=== PATIENT | male | born 1945 | race Caucasian/White ===

== ENCOUNTER 2018-10-06 23:45 | Inpatient (IN) | payer MEDICARE, OTHER, MEDICAID ==
[2018-10-07] MEDS: LORAZEPAM 2 MG INJ IM (01:46)
[2018-10-07 15:46] LABS: ADD MAN DIFF? NO
[2018-10-07 16:07] LABS: BASOPHIL # 0.1 10^3/ul (0.0-0.1); BASOPHILS % 0.6 % (0.0-2.0); EOSINOPHILS # 0.2 10^3/ul (0.0-0.5); EOSINOPHILS % 2.1 % (0.0-7.0); HEMATOCRIT 40.1 % (42.0-52.0); HEMOGLOBIN 13.4 g/dl (14.0-18.0); LYMPHOCYTES # 2.2 10^3/ul (0.8-2.9); LYMPHOCYTES % 26.2 % (15.0-51.0); MEAN CORPUSCULAR HEMOGLOBIN 32.6 pg (29.0-33.0); MEAN CORPUSCULAR HGB CONC 33.4 g/dl (32.0-37.0); MEAN CORPUSCULAR VOLUME 97.6 fl (82.0-101.0); MEAN PLATELET VOLUME 10.7 fl (7.4-10.4); MONOCYTE # 0.5 10^3/ul (0.3-0.9); MONOCYTES % 6.3 % (0.0-11.0); NEUTROPHIL # 5.3 10^3/ul (1.6-7.5); NEUTROPHILS % 64.4 % (39.0-77.0); PLATELET COUNT 194 10^3/UL (140-415); RED BLOOD COUNT 4.11 10^6/ul (4.70-6.10); RED CELL DISTRIBUTION WIDTH 12.4 % (11.5-14.5)
[2018-10-07 16:07] LABS: WHITE BLOOD COUNT 8.2 10^3/ul (4.8-10.8)
[2018-10-07 16:25] LABS: ALANINE AMINOTRANSFERASE 23 IU/L (13-69); ALBUMIN 4.4 g/dl (3.3-4.9); ALBUMIN/GLOBULIN RATIO 1.33; ALKALINE PHOSPHATASE 69 IU/L (42-121); ANION GAP 10 (5-13); ASPARTATE AMINO TRANSFERASE 28 IU/L (15-46); BILIRUBIN,INDIRECT 0.3 mg/dl (0-1.1); BILIRUBIN,TOTAL 0.3 mg/dl (0.2-1.3); BLOOD UREA NITROGEN 16 mg/dl (7-20); CALCIUM 9.7 mg/dl (8.4-10.2); CARBON DIOXIDE 29 mmol/L (21-31); CHLORIDE 106 mmol/L (97-110); CREATININE 1.02 mg/dl (0.61-1.24); GLUCOSE 97 mg/dl (70-220); LIPASE 150 U/L (23-300); POTASSIUM 4.5 mmol/L (3.5-5.1); SODIUM 145 mmol/L (135-144); TOTAL PROTEIN 7.7 g/dl (6.1-8.1)
[2018-10-07 16:30] LABS: VALPROATE 12 ug/ml (50-100)
[2018-10-07 16:36] LABS: TROPONIN-I < 0.012 ng/ml (0.000-0.120)
[2018-10-07] MEDS ORDERED: ACETAMINOPHEN 325 MG TAB PO ×2 (17:00→18:00)
[2018-10-07] MEDS ORDERED: ONDANSETRON 4 MG INJ IV ×2 (17:00→18:00)
[2018-10-07 17:16] LABS: ADD UMIC NO; UR ASCORBIC ACID 40 mg/dL (NEGATIVE); UR BILIRUBIN (Dip) NEGATIVE (NEGATIVE); UR BLOOD (Dip) NEGATIVE (NEGATIVE); UR CLARITY SLIGHTLY CLOUDY (CLEAR); UR COLOR YELLOW (YELLOW); UR GLUCOSE (Dip) NEGATIVE (NEGATIVE); UR KETONES (Dip) NEGATIVE (NEGATIVE); UR LEUKOCYTE ESTERASE (Dip) NEGATIVE Leu/ul (NEGATIVE); UR NITRITE (Dip) NEGATIVE (NEGATIVE); UR RBC 1 /HPF (0-5); UR SPECIFIC GRAVITY (Dip) 1.017 (1.003-1.030); UR SQUAMOUS EPITHELIAL CELL FEW /HPF (FEW); UR TOTAL PROTEIN (Dip) NEGATIVE (NEGATIVE); UR UROBILINOGEN (Dip) 1+ mg/dL (NEGATIVE); UR WBC 2 /HPF (0-5)
[2018-10-07] MEDS: HALOPERIDOL 5 MG INJ IM ×2 (17:51→19:50)
[2018-10-07] MEDS: LORAZEPAM 2 MG INJ IV ×2 (17:56→23:08)
[2018-10-07] MEDS ORDERED: NACL 0.9% 3 ML SYG IV (18:00)
[2018-10-07] MEDS ORDERED: BISACODYL 10 MG SUPP PR (18:00)
[2018-10-07] MEDS ORDERED: ACETAMINOPHEN 650 MG SUPP PR (18:00)
[2018-10-07] MEDS: DIPHENHYDRAMINE 50 MG INJ IV ×2 (19:49→23:08)
[2018-10-07] MEDS: HALOPERIDOL 5 MG TAB PO (21:00)
[2018-10-07 23:01] LABS: FOLATE > 20.0 ng/ml (2.8-20.0)
[2018-10-07] MEDS: THIAMINE 100 MG TAB PO (23:16)
[2018-10-07] MEDS: FAMOTIDINE 20 MG TAB PO (23:16)
[2018-10-07] MEDS: OLANZAPINE 5 MG TAB PO (23:16)
[2018-10-07] MEDS: ARIPIPRAZOLE 2 MG TAB PO (23:24)
[2018-10-07] MEDS: METOPROLOL (XL) 25 MG TAB PO (23:29)
[2018-10-08] MEDS: DEXTROSE 5%-0.45% NACL 1,000 ML IV ×2 (01:30→13:57)
[2018-10-08] MEDS: ARIPIPRAZOLE 2 MG TAB PO ×2 (08:13→21:27)
[2018-10-08] MEDS: THIAMINE 100 MG TAB PO ×2 (08:16→21:26)
[2018-10-08] MEDS: FAMOTIDINE 20 MG TAB PO ×2 (08:16→21:27)
[2018-10-08] MEDS: METOPROLOL (XL) 25 MG TAB PO (08:17)
[2018-10-08 09:03] LABS: ADD MAN DIFF? NO
[2018-10-08 09:07] LABS: BASOPHIL # 0.1 10^3/ul (0.0-0.1); BASOPHILS % 0.7 % (0.0-2.0); EOSINOPHILS # 0.2 10^3/ul (0.0-0.5); EOSINOPHILS % 2.7 % (0.0-7.0); HEMATOCRIT 35.6 % (42.0-52.0); HEMOGLOBIN 12.1 g/dl (14.0-18.0); LYMPHOCYTES # 2.4 10^3/ul (0.8-2.9); LYMPHOCYTES % 34.5 % (15.0-51.0); MEAN CORPUSCULAR HEMOGLOBIN 32.4 pg (29.0-33.0); MEAN CORPUSCULAR VOLUME 95.2 fl (82.0-101.0); MEAN PLATELET VOLUME 10.8 fl (7.4-10.4); MONOCYTE # 0.5 10^3/ul (0.3-0.9); MONOCYTES % 7.2 % (0.0-11.0); NEUTROPHIL # 3.9 10^3/ul (1.6-7.5); NEUTROPHILS % 54.6 % (39.0-77.0); PLATELET COUNT 172 10^3/UL (140-415); RED BLOOD COUNT 3.74 10^6/ul (4.70-6.10); RED CELL DISTRIBUTION WIDTH 12.5 % (11.5-14.5)
[2018-10-08 09:07] LABS: WHITE BLOOD COUNT 7.1 10^3/ul (4.8-10.8)
[2018-10-08 09:28] LABS: ALANINE AMINOTRANSFERASE 32 IU/L (13-69); ALBUMIN 3.7 g/dl (3.3-4.9); ALBUMIN/GLOBULIN RATIO 1.32; ALKALINE PHOSPHATASE 57 IU/L (42-121); ANION GAP 6 (5-13); ASPARTATE AMINO TRANSFERASE 28 IU/L (15-46); BILIRUBIN,INDIRECT 0.4 mg/dl (0-1.1); BILIRUBIN,TOTAL 0.4 mg/dl (0.2-1.3); BLOOD UREA NITROGEN 16 mg/dl (7-20); CALCIUM 9.2 mg/dl (8.4-10.2); CARBON DIOXIDE 28 mmol/L (21-31); CHLORIDE 108 mmol/L (97-110); CREATININE 0.94 mg/dl (0.61-1.24); GLUCOSE 88 mg/dl (70-220); PHOSPHORUS 3.8 mg/dl (2.5-4.9); POTASSIUM 3.6 mmol/L (3.5-5.1); SODIUM 142 mmol/L (135-144); TOTAL PROTEIN 6.5 g/dl (6.1-8.1)
[2018-10-08 09:59] LABS: THYROID STIMULATING HORMONE 0.843 MIU/L (0.465-4.680)
[2018-10-08] MEDS: DIVALPROEX (ER) 250 MG TAB PO (10:06)
[2018-10-08 10:34] LABS: FOLATE > 20.0 ng/ml (2.8-20.0)
[2018-10-08 11:06] LABS: HEMOGLOBIN A1C 5.1 % (0-5.9)
[2018-10-08 14:43] LABS: RAPID PLASMA REAGIN NONREACTIVE (NR)
[2018-10-08] MEDS: HALOPERIDOL 5 MG INJ IM (16:24)
[2018-10-08] MEDS: morphine 2 MG INJ IV (17:12)
[2018-10-08] MEDS: OLANZAPINE 5 MG TAB PO ×2 (18:46→21:27)
[2018-10-08] MEDS: HALOPERIDOL 5 MG TAB PO (21:27)
[2018-10-09] MEDS: HYDROCODONE/APAP (5/325) TAB PO (02:12)
[2018-10-09] MEDS: ARIPIPRAZOLE 2 MG TAB PO ×2 (08:50→20:43)
[2018-10-09] MEDS: FAMOTIDINE 20 MG TAB PO ×2 (08:50→20:43)
[2018-10-09] MEDS: METOPROLOL (XL) 25 MG TAB PO (08:51)
[2018-10-09] MEDS: DIVALPROEX (ER) 250 MG TAB PO ×2 (09:00→20:43)
[2018-10-09] MEDS: THIAMINE 100 MG TAB PO ×2 (09:00→20:43)
[2018-10-09] MEDS: HALOPERIDOL 5 MG INJ IM (17:02)
[2018-10-09] MEDS: traZODone 50 MG TAB PO (18:06)
[2018-10-09] MEDS: HALOPERIDOL 5 MG TAB PO (20:43)
[2018-10-09] MEDS: OLANZAPINE 5 MG TAB PO (20:48)
[2018-10-10] MEDS: ARIPIPRAZOLE 2 MG TAB PO ×2 (09:04→21:36)
[2018-10-10] MEDS: OLANZAPINE 5 MG TAB PO ×2 (09:04→20:29)
[2018-10-10] MEDS: THIAMINE 100 MG TAB PO ×2 (09:04→20:30)
[2018-10-10] MEDS: FAMOTIDINE 20 MG TAB PO ×2 (09:04→20:29)
[2018-10-10] MEDS: traZODone 50 MG TAB PO ×3 (09:05→20:29)
[2018-10-10] MEDS: DIVALPROEX (ER) 250 MG TAB PO ×2 (09:05→20:30)
[2018-10-10] MEDS: SENNA TAB PO (09:08)
[2018-10-10] MEDS: METOPROLOL (XL) 25 MG TAB PO (09:12)
[2018-10-10] MEDS: HALOPERIDOL 5 MG TAB PO (20:30)
[2018-10-11] MEDS: HALOPERIDOL 5 MG INJ IM ×2 (03:37→21:43)
[2018-10-11] MEDS: SENNA TAB PO (09:26)
[2018-10-11] MEDS: OLANZAPINE 5 MG TAB PO ×2 (09:26→20:30)
[2018-10-11] MEDS: THIAMINE 100 MG TAB PO ×2 (09:27→20:30)
[2018-10-11] MEDS: DIVALPROEX (ER) 250 MG TAB PO ×2 (09:27→20:30)
[2018-10-11] MEDS: METOPROLOL (XL) 25 MG TAB PO (09:30)
[2018-10-11] MEDS: ARIPIPRAZOLE 2 MG TAB PO (09:31)
[2018-10-11] MEDS: traZODone 50 MG TAB PO ×3 (09:38→20:30)
[2018-10-11] MEDS: QUETIAPINE 100 MG TAB PO (20:30)
[2018-10-11] MEDS: LORAZEPAM 2 MG INJ IV (22:24)
[2018-10-12] MEDS: METOPROLOL (XL) 25 MG TAB PO (09:00)
[2018-10-12] MEDS: traZODone 50 MG TAB PO ×3 (09:55→21:22)
[2018-10-12] MEDS: SENNA TAB PO (09:55)
[2018-10-12] MEDS: DIVALPROEX (ER) 250 MG TAB PO ×2 (09:55→21:22)
[2018-10-12] MEDS: OLANZAPINE 5 MG TAB PO ×2 (09:55→21:19)
[2018-10-12] MEDS: THIAMINE 100 MG TAB PO ×2 (09:56→21:19)
[2018-10-12] MEDS: hydrALAzine 20 MG INJ IV (11:33)
[2018-10-12] MEDS: HALOPERIDOL 5 MG INJ IM (17:41)
[2018-10-12] MEDS: QUETIAPINE 100 MG TAB PO (21:19)
[2018-10-13] MEDS: SENNA TAB PO (08:08)
[2018-10-13] MEDS: OLANZAPINE 5 MG TAB PO ×2 (08:09→20:05)
[2018-10-13] MEDS: traZODone 50 MG TAB PO ×3 (08:10→20:06)
[2018-10-13] MEDS: METOPROLOL (XL) 25 MG TAB PO (08:10)
[2018-10-13] MEDS: THIAMINE 100 MG TAB PO ×2 (08:10→20:05)
[2018-10-13] MEDS: DIVALPROEX (ER) 250 MG TAB PO ×2 (08:10→20:06)
[2018-10-13] MEDS: QUETIAPINE 100 MG TAB PO (20:05)
[2018-10-13] MEDS: HALOPERIDOL 5 MG INJ IM (21:27)
[2018-10-14] MEDS: hydrALAzine 20 MG INJ IV (04:43)
[2018-10-14] MEDS: METOPROLOL (XL) 25 MG TAB PO (08:04)
[2018-10-14] MEDS: THIAMINE 100 MG TAB PO ×2 (08:05→20:08)
[2018-10-14] MEDS: DIVALPROEX (ER) 250 MG TAB PO ×2 (08:05→20:09)
[2018-10-14] MEDS: traZODone 50 MG TAB PO ×3 (08:05→20:08)
[2018-10-14] MEDS: SENNA TAB PO (08:05)
[2018-10-14] MEDS: OLANZAPINE 5 MG TAB PO ×2 (08:05→20:07)
[2018-10-14] MEDS: QUETIAPINE 100 MG TAB PO (20:08)
[2018-10-14] MEDS: LORAZEPAM 2 MG INJ IV (21:30)
[2018-10-14] MEDS: HALOPERIDOL 5 MG INJ IM (21:40)
[2018-10-15] MEDS: HALOPERIDOL 5 MG INJ IM (03:33)
[2018-10-15] MEDS: hydrALAzine 20 MG INJ IV ×2 (03:36→18:56)
[2018-10-15] MEDS: METOPROLOL (XL) 25 MG TAB PO (09:00)
[2018-10-15] MEDS: OLANZAPINE 5 MG TAB PO ×2 (11:01→20:00)
[2018-10-15] MEDS: SENNA TAB PO (11:01)
[2018-10-15] MEDS: DIVALPROEX (ER) 250 MG TAB PO ×2 (11:01→20:00)
[2018-10-15] MEDS: THIAMINE 100 MG TAB PO ×2 (11:02→20:00)
[2018-10-15] MEDS: traZODone 50 MG TAB PO ×3 (11:02→20:00)
[2018-10-15] MEDS: QUETIAPINE 100 MG TAB PO (20:00)
[2018-10-16] MEDS: HALOPERIDOL 5 MG INJ IM ×3 (01:15→23:14)
[2018-10-16] MEDS: OLANZAPINE 5 MG TAB PO ×2 (09:39→20:27)
[2018-10-16] MEDS: DIVALPROEX (ER) 250 MG TAB PO ×2 (09:39→20:27)
[2018-10-16] MEDS: METOPROLOL (XL) 25 MG TAB PO (09:39)
[2018-10-16] MEDS: SENNA TAB PO (09:39)
[2018-10-16] MEDS: THIAMINE 100 MG TAB PO ×2 (09:39→20:27)
[2018-10-16] MEDS: traZODone 50 MG TAB PO ×3 (09:39→20:27)
[2018-10-16] MEDS: LORAZEPAM 2 MG INJ IV (15:56)
[2018-10-16] MEDS: BISACODYL (EC) 5 MG TAB PO (18:52)
[2018-10-16] MEDS: DOCUSATE SODIUM 100 MG CAP PO (18:52)
[2018-10-16] MEDS: QUETIAPINE 100 MG TAB PO (20:27)
[2018-10-17] MEDS: OLANZAPINE 5 MG TAB PO ×2 (08:39→20:28)
[2018-10-17] MEDS: SENNA TAB PO (08:39)
[2018-10-17] MEDS: traZODone 50 MG TAB PO ×3 (08:39→20:28)
[2018-10-17] MEDS: METOPROLOL (XL) 25 MG TAB PO (08:40)
[2018-10-17] MEDS: THIAMINE 100 MG TAB PO ×2 (08:40→20:28)
[2018-10-17] MEDS: DIVALPROEX (ER) 250 MG TAB PO ×2 (08:41→20:28)
[2018-10-17] MEDS: QUETIAPINE 100 MG TAB PO (20:28)
[2018-10-17] MEDS: HALOPERIDOL 5 MG INJ IM (22:43)
[2018-10-18] MEDS: OLANZAPINE 5 MG TAB PO ×2 (08:15→20:49)
[2018-10-18] MEDS: HYDROCODONE/APAP (5/325) TAB PO (08:16)
[2018-10-18] MEDS: METOPROLOL (XL) 25 MG TAB PO (08:16)
[2018-10-18] MEDS: SENNA TAB PO (08:16)
[2018-10-18] MEDS: THIAMINE 100 MG TAB PO ×2 (08:16→20:49)
[2018-10-18] MEDS: DIVALPROEX (ER) 250 MG TAB PO (08:17)
[2018-10-18] MEDS: traZODone 50 MG TAB PO ×3 (09:00→21:49)
[2018-10-18] MEDS: HALOPERIDOL 5 MG INJ IM (09:31)
[2018-10-18] MEDS ORDERED: LORAZEPAM 2 MG INJ (11:14)
[2018-10-18] MEDS: LORAZEPAM 2 MG INJ IV (11:23)
[2018-10-18] MEDS: hydrALAzine 20 MG INJ IV ×2 (15:48→17:15)
[2018-10-18] MEDS ORDERED: hydrALAzine (1 MG/ML) IV SYG IV (17:30)
[2018-10-18] MEDS: DIVALPROEX (EC) 500 MG TAB PO (20:48)
[2018-10-18] MEDS: QUETIAPINE 100 MG TAB PO (20:49)
[2018-10-18] MEDS ORDERED: DIVALPROEX (ER) 250 MG TAB PO (21:00)
[2018-10-19] MEDS: traZODone 50 MG TAB PO ×3 (08:54→20:09)
[2018-10-19] MEDS: OLANZAPINE 5 MG TAB PO ×2 (08:54→20:09)
[2018-10-19] MEDS: QUETIAPINE 25 MG TAB PO (08:54)
[2018-10-19] MEDS: SENNA TAB PO (08:54)
[2018-10-19] MEDS: THIAMINE 100 MG TAB PO ×2 (08:54→20:09)
[2018-10-19] MEDS: DIVALPROEX (EC) 500 MG TAB PO ×2 (08:54→20:08)
[2018-10-19] MEDS: METOPROLOL (XL) 25 MG TAB PO (08:55)
[2018-10-19] MEDS: HALOPERIDOL 5 MG INJ IM (15:46)
[2018-10-19] MEDS: QUETIAPINE 100 MG TAB PO (20:09)
[2018-10-20] MEDS: ZOLPIDEM 5 MG TAB PO (00:01)
[2018-10-20] MEDS: hydrALAzine 20 MG INJ IV (01:41)
[2018-10-20] MEDS: QUETIAPINE 25 MG TAB PO (08:11)
[2018-10-20] MEDS: SENNA TAB PO (08:11)
[2018-10-20] MEDS: OLANZAPINE 5 MG TAB PO ×2 (08:11→21:02)
[2018-10-20] MEDS: DOCUSATE SODIUM 100 MG CAP PO (08:11)
[2018-10-20] MEDS: DIVALPROEX (EC) 500 MG TAB PO ×2 (08:12→21:02)
[2018-10-20] MEDS: THIAMINE 100 MG TAB PO ×2 (08:12→21:02)
[2018-10-20] MEDS: traZODone 50 MG TAB PO ×3 (08:12→21:02)
[2018-10-20] MEDS: METOPROLOL (XL) 25 MG TAB PO (08:13)
[2018-10-20] MEDS: QUETIAPINE 100 MG TAB PO (21:02)
[2018-10-21] MEDS: LORAZEPAM 2 MG INJ IV
[2018-10-21] MEDS: SENNA TAB PO (08:47)
[2018-10-21] MEDS: traZODone 50 MG TAB PO ×3 (08:47→20:55)
[2018-10-21] MEDS: QUETIAPINE 25 MG TAB PO ×2 (08:47→20:55)
[2018-10-21] MEDS: OLANZAPINE 5 MG TAB PO ×2 (08:48→20:54)
[2018-10-21] MEDS: METOPROLOL (XL) 25 MG TAB PO (08:48)
[2018-10-21] MEDS: THIAMINE 100 MG TAB PO ×2 (08:48→20:54)
[2018-10-21] MEDS: DIVALPROEX (EC) 500 MG TAB PO (08:48)
[2018-10-21] MEDS ORDERED: DIVALPROEX (EC) 250 MG TAB PO (21:00)
[2018-10-21] MEDS: DIVALPROEX (EC) 250 MG TAB PO (21:49)
[2018-10-21] MEDS: CHLORPROMAZINE 25 MG INJ IM (22:39)
[2018-10-22] MEDS: hydrALAzine 20 MG INJ IV (02:55)
[2018-10-22] MEDS: traZODone 50 MG TAB PO ×3 (08:36→20:04)
[2018-10-22] MEDS: QUETIAPINE 25 MG TAB PO ×2 (08:38→20:04)
[2018-10-22] MEDS: METOPROLOL (XL) 25 MG TAB PO (08:38)
[2018-10-22] MEDS: OLANZAPINE 5 MG TAB PO ×2 (08:38→20:04)
[2018-10-22] MEDS: THIAMINE 100 MG TAB PO ×2 (08:38→20:04)
[2018-10-22] MEDS: DIVALPROEX (EC) 250 MG TAB PO ×2 (08:39→20:04)
[2018-10-22] MEDS: SENNA TAB PO (08:39)
[2018-10-22] MEDS: ENOXAPARIN 40 MG/0.4 ML SYG SC (08:50)
[2018-10-22] MEDS: NIFEdipine (XL) 30 MG TAB PO (16:12)
[2018-10-23] MEDS: DIVALPROEX (EC) 250 MG TAB PO ×2 (09:20→20:35)
[2018-10-23] MEDS: SENNA TAB PO (09:20)
[2018-10-23] MEDS: QUETIAPINE 25 MG TAB PO ×2 (09:21→20:35)
[2018-10-23] MEDS: traZODone 50 MG TAB PO ×3 (09:21→20:35)
[2018-10-23] MEDS: THIAMINE 100 MG TAB PO ×2 (09:21→20:35)
[2018-10-23] MEDS: OLANZAPINE 5 MG TAB PO ×2 (09:22→20:35)
[2018-10-23] MEDS: NIFEdipine (XL) 30 MG TAB PO (09:22)
[2018-10-23] MEDS: METOPROLOL (XL) 25 MG TAB PO (09:24)
[2018-10-23] MEDS: ENOXAPARIN 40 MG/0.4 ML SYG SC (09:25)
[2018-10-23] MEDS: DIPHENHYDRAMINE 50 MG INJ IV (09:37)
[2018-10-24 07:17] LABS: ADD MAN DIFF? NO
[2018-10-24 07:20] LABS: BASOPHILS % 0.7 % (0.0-2.0); EOSINOPHILS # 0.1 10^3/ul (0.0-0.5); HEMATOCRIT 34.7 % (42.0-52.0); HEMOGLOBIN 11.6 g/dl (14.0-18.0); LYMPHOCYTES # 2.7 10^3/ul (0.8-2.9); LYMPHOCYTES % 45.7 % (15.0-51.0); MEAN CORPUSCULAR HGB CONC 33.4 g/dl (32.0-37.0); MEAN CORPUSCULAR VOLUME 95.9 fl (82.0-101.0); MEAN PLATELET VOLUME 10.8 fl (7.4-10.4); MONOCYTE # 0.5 10^3/ul (0.3-0.9); MONOCYTES % 8.2 % (0.0-11.0); NEUTROPHIL # 2.6 10^3/ul (1.6-7.5); NEUTROPHILS % 43.2 % (39.0-77.0); PLATELET COUNT 209 10^3/UL (140-415); RED BLOOD COUNT 3.62 10^6/ul (4.70-6.10); RED CELL DISTRIBUTION WIDTH 12.7 % (11.5-14.5)
[2018-10-24 07:40] LABS: ALANINE AMINOTRANSFERASE 20 IU/L (13-69); ALBUMIN 3.5 g/dl (3.3-4.9); ALBUMIN/GLOBULIN RATIO 1.34; ALKALINE PHOSPHATASE 50 IU/L (42-121); ANION GAP 9 (5-13); ASPARTATE AMINO TRANSFERASE 21 IU/L (15-46); BILIRUBIN,INDIRECT 0.3 mg/dl (0-1.1); BILIRUBIN,TOTAL 0.3 mg/dl (0.2-1.3); BLOOD UREA NITROGEN 19 mg/dl (7-20); CARBON DIOXIDE 27 mmol/L (21-31); CHLORIDE 108 mmol/L (97-110); CREATININE 1.02 mg/dl (0.61-1.24); GLUCOSE 82 mg/dl (70-220); POTASSIUM 3.5 mmol/L (3.5-5.1); SODIUM 144 mmol/L (135-144); TOTAL PROTEIN 6.1 g/dl (6.1-8.1)
[2018-10-24 07:41] LABS: VALPROATE 78 ug/ml (50-100)
[2018-10-24] MEDS: traZODone 50 MG TAB PO ×5 (09:47→23:47)
[2018-10-24] MEDS: THIAMINE 100 MG TAB PO ×3 (09:48→23:47)
[2018-10-24] MEDS: NIFEdipine (XL) 30 MG TAB PO (09:48)
[2018-10-24] MEDS: DIVALPROEX (EC) 250 MG TAB PO ×3 (09:48→23:47)
[2018-10-24] MEDS: SENNA TAB PO (09:50)
[2018-10-24] MEDS: OLANZAPINE 5 MG TAB PO (09:50)
[2018-10-24] MEDS: ENOXAPARIN 40 MG/0.4 ML SYG SC (09:51)
[2018-10-24] MEDS: METOPROLOL (XL) 25 MG TAB PO (10:25)
[2018-10-24] MEDS: hydrALAzine 20 MG INJ IV (13:51)
[2018-10-24] MEDS: OLANZAPINE (ODT) 5 MG TAB ODT ×2 (21:00→23:48)
[2018-10-25] MEDS: ENOXAPARIN 40 MG/0.4 ML SYG SC (08:13)
[2018-10-25] MEDS: METOPROLOL (XL) 25 MG TAB PO (08:14)
[2018-10-25] MEDS: SENNA TAB PO (08:15)
[2018-10-25] MEDS: NIFEdipine (XL) 30 MG TAB PO (08:15)
[2018-10-25] MEDS: DIVALPROEX (EC) 250 MG TAB PO ×2 (08:15→20:28)
[2018-10-25] MEDS: OLANZAPINE (ODT) 5 MG TAB ODT ×2 (08:15→20:30)
[2018-10-25] MEDS: THIAMINE 100 MG TAB PO ×2 (08:15→20:30)
[2018-10-25] MEDS: traZODone 50 MG TAB PO ×3 (08:15→20:30)
[2018-10-26] MEDS: hydrALAzine 20 MG INJ IV ×2 (01:46→07:45)
[2018-10-26] MEDS: DIVALPROEX (EC) 250 MG TAB PO ×2 (09:14→20:41)
[2018-10-26] MEDS: THIAMINE 100 MG TAB PO ×2 (09:14→20:38)
[2018-10-26] MEDS: SENNA TAB PO (09:14)
[2018-10-26] MEDS: traZODone 50 MG TAB PO ×3 (09:15→20:38)
[2018-10-26] MEDS: OLANZAPINE (ODT) 5 MG TAB ODT ×2 (09:16→20:42)
[2018-10-26] MEDS: METOPROLOL (XL) 25 MG TAB PO (09:16)
[2018-10-26] MEDS: NIFEdipine (XL) 30 MG TAB PO ×2 (09:17→20:39)
[2018-10-26] MEDS: ENOXAPARIN 40 MG/0.4 ML SYG SC (09:21)
[2018-10-27] MEDS: DIVALPROEX (EC) 250 MG TAB PO ×2 (08:54→20:29)
[2018-10-27] MEDS: THIAMINE 100 MG TAB PO ×2 (08:55→20:28)
[2018-10-27] MEDS: SENNA TAB PO (08:55)
[2018-10-27] MEDS: NIFEdipine (XL) 30 MG TAB PO ×2 (08:55→20:29)
[2018-10-27] MEDS: OLANZAPINE (ODT) 5 MG TAB ODT ×2 (08:56→20:28)
[2018-10-27] MEDS: traZODone 50 MG TAB PO ×3 (08:56→20:29)
[2018-10-27] MEDS: METOPROLOL (XL) 25 MG TAB PO (08:57)
[2018-10-27] MEDS: ENOXAPARIN 40 MG/0.4 ML SYG SC (09:04)
[2018-10-28] MEDS: CHLORPROMAZINE 25 MG INJ IM ×2 (01:34→21:22)
[2018-10-28] MEDS: traZODone 50 MG TAB PO ×3 (08:46→20:04)
[2018-10-28] MEDS: SENNA TAB PO (08:47)
[2018-10-28] MEDS: THIAMINE 100 MG TAB PO ×2 (08:49→20:04)
[2018-10-28] MEDS: DIVALPROEX (EC) 250 MG TAB PO ×2 (08:49→20:04)
[2018-10-28] MEDS: NIFEdipine (XL) 30 MG TAB PO ×2 (08:50→20:04)
[2018-10-28] MEDS: OLANZAPINE (ODT) 5 MG TAB ODT ×2 (08:51→20:01)
[2018-10-28] MEDS: ENOXAPARIN 40 MG/0.4 ML SYG SC (08:51)
[2018-10-28] MEDS: METOPROLOL (XL) 25 MG TAB PO (08:51)
[2018-10-29] MEDS: DIVALPROEX (EC) 250 MG TAB PO ×2 (09:27→20:23)
[2018-10-29] MEDS: traZODone 50 MG TAB PO ×3 (09:27→20:23)
[2018-10-29] MEDS: THIAMINE 100 MG TAB PO ×2 (09:28→20:24)
[2018-10-29] MEDS: SENNA TAB PO (09:28)
[2018-10-29] MEDS: METOPROLOL (XL) 25 MG TAB PO (09:30)
[2018-10-29] MEDS: OLANZAPINE (ODT) 5 MG TAB ODT ×2 (09:30→20:21)
[2018-10-29] MEDS: NIFEdipine (XL) 30 MG TAB PO ×2 (09:30→20:24)
[2018-10-29] MEDS: ENOXAPARIN 40 MG/0.4 ML SYG SC (09:31)
[2018-10-29] MEDS: BISACODYL (EC) 5 MG TAB PO (12:53)
[2018-10-30] MEDS: DIVALPROEX (EC) 250 MG TAB PO ×2 (09:19→22:29)
[2018-10-30] MEDS: THIAMINE 100 MG TAB PO ×2 (09:19→22:28)
[2018-10-30] MEDS: NIFEdipine (XL) 30 MG TAB PO ×2 (09:19→22:29)
[2018-10-30] MEDS: traZODone 50 MG TAB PO ×3 (09:19→22:30)
[2018-10-30] MEDS: METOPROLOL (XL) 25 MG TAB PO (09:19)
[2018-10-30] MEDS: SENNA TAB PO (09:19)
[2018-10-30] MEDS: DOCUSATE SODIUM 100 MG CAP PO (09:20)
[2018-10-30] MEDS: OLANZAPINE (ODT) 5 MG TAB ODT ×2 (09:20→22:29)
[2018-10-30] MEDS: ENOXAPARIN 40 MG/0.4 ML SYG SC (09:21)
[2018-10-31] MEDS: ENOXAPARIN 40 MG/0.4 ML SYG SC ×2 (09:00→13:11)
[2018-10-31] MEDS: traZODone 50 MG TAB PO ×3 (09:00→21:02)
[2018-10-31] MEDS: NIFEdipine (XL) 30 MG TAB PO ×2 (09:00→21:01)
[2018-10-31] MEDS: METOPROLOL (XL) 25 MG TAB PO (09:00)
[2018-10-31] MEDS: THIAMINE 100 MG TAB PO ×2 (09:00→21:01)
[2018-10-31] MEDS: SENNA TAB PO ×2 (09:00→13:06)
[2018-10-31] MEDS: OLANZAPINE (ODT) 5 MG TAB ODT ×2 (09:00→21:02)
[2018-10-31] MEDS: DIVALPROEX (EC) 250 MG TAB PO ×2 (09:00→21:02)
[2018-11-01] MEDS: ENOXAPARIN 40 MG/0.4 ML SYG SC (09:56)
[2018-11-01] MEDS: traZODone 50 MG TAB PO ×3 (10:00→20:35)
[2018-11-01] MEDS: METOPROLOL (XL) 25 MG TAB PO (10:00)
[2018-11-01] MEDS: SENNA TAB PO (10:00)
[2018-11-01] MEDS: THIAMINE 100 MG TAB PO (10:00)
[2018-11-01] MEDS: NIFEdipine (XL) 30 MG TAB PO ×2 (10:01→20:36)
[2018-11-01] MEDS: DIVALPROEX (EC) 250 MG TAB PO ×2 (10:01→20:35)
[2018-11-01] MEDS: OLANZAPINE (ODT) 5 MG TAB ODT ×2 (10:02→20:34)
[2018-11-01] MEDS: BISACODYL (EC) 5 MG TAB PO (13:22)
[2018-11-01] MEDS: hydrALAzine 20 MG INJ IV (14:42)
[2018-11-01] MEDS: MEMANTINE 5 MG TAB PO (20:36)
[2018-11-02 06:27] LABS: ADD MAN DIFF? NO
[2018-11-02 06:29] LABS: WHITE BLOOD COUNT 8.4 10^3/ul (4.8-10.8)
[2018-11-02 06:29] LABS: BASOPHIL # 0.1 10^3/ul (0.0-0.1); BASOPHILS % 0.7 % (0.0-2.0); EOSINOPHILS # 0.1 10^3/ul (0.0-0.5); HEMATOCRIT 39.1 % (42.0-52.0); HEMOGLOBIN 13.1 g/dl (14.0-18.0); LYMPHOCYTES # 3.3 10^3/ul (0.8-2.9); LYMPHOCYTES % 39.4 % (15.0-51.0); MEAN CORPUSCULAR HEMOGLOBIN 32.2 pg (29.0-33.0); MEAN CORPUSCULAR HGB CONC 33.5 g/dl (32.0-37.0); MEAN CORPUSCULAR VOLUME 96.1 fl (82.0-101.0); MEAN PLATELET VOLUME 11.2 fl (7.4-10.4); MONOCYTE # 0.7 10^3/ul (0.3-0.9); MONOCYTES % 8.1 % (0.0-11.0); NEUTROPHIL # 4.2 10^3/ul (1.6-7.5); NEUTROPHILS % 50.4 % (39.0-77.0); PLATELET COUNT 199 10^3/UL (140-415); RED BLOOD COUNT 4.07 10^6/ul (4.70-6.10); RED CELL DISTRIBUTION WIDTH 12.7 % (11.5-14.5)
[2018-11-02 06:53] LABS: ALANINE AMINOTRANSFERASE 20 IU/L (13-69); ALBUMIN 4.6 g/dl (3.3-4.9); ALBUMIN/GLOBULIN RATIO 1.35; ALKALINE PHOSPHATASE 66 IU/L (42-121); ANION GAP 12 (5-13); ASPARTATE AMINO TRANSFERASE 26 IU/L (15-46); BILIRUBIN,INDIRECT 0.4 mg/dl (0-1.1); BILIRUBIN,TOTAL 0.4 mg/dl (0.2-1.3); BLOOD UREA NITROGEN 21 mg/dl (7-20); CALCIUM 9.6 mg/dl (8.4-10.2); CARBON DIOXIDE 28 mmol/L (21-31); CHLORIDE 104 mmol/L (97-110); CREATININE 1.06 mg/dl (0.61-1.24); GLUCOSE 86 mg/dl (70-220); POTASSIUM 3.9 mmol/L (3.5-5.1); SODIUM 144 mmol/L (135-144)
[2018-11-02 09:06] LABS: VALPROATE 104 ug/ml (50-100)
[2018-11-02] MEDS: traZODone 50 MG TAB PO ×3 (09:28→22:02)
[2018-11-02] MEDS: OLANZAPINE (ODT) 5 MG TAB ODT ×2 (09:29→22:02)
[2018-11-02] MEDS: METOPROLOL (XL) 25 MG TAB PO (09:30)
[2018-11-02] MEDS: DIVALPROEX (EC) 250 MG TAB PO ×2 (09:30→22:01)
[2018-11-02] MEDS: MEMANTINE 5 MG TAB PO ×2 (09:30→22:02)
[2018-11-02] MEDS: SENNA TAB PO (09:30)
[2018-11-02] MEDS: THIAMINE 100 MG TAB PO (09:30)
[2018-11-02] MEDS: ENOXAPARIN 40 MG/0.4 ML SYG SC (09:31)
[2018-11-02] MEDS: NIFEdipine (XL) 30 MG TAB PO ×2 (09:31→22:02)
[2018-11-03] MEDS: HYDROCODONE/APAP (5/325) TAB PO (08:36)
[2018-11-03] MEDS: DIVALPROEX (EC) 250 MG TAB PO ×2 (08:42→21:02)
[2018-11-03] MEDS: OLANZAPINE (ODT) 5 MG TAB ODT ×2 (08:43→21:02)
[2018-11-03] MEDS: METOPROLOL (XL) 25 MG TAB PO (08:43)
[2018-11-03] MEDS: SENNA TAB PO (08:44)
[2018-11-03] MEDS: NIFEdipine (XL) 30 MG TAB PO ×2 (08:44→21:02)
[2018-11-03] MEDS: THIAMINE 100 MG TAB PO (08:44)
[2018-11-03] MEDS: MEMANTINE 5 MG TAB PO ×2 (08:44→21:02)
[2018-11-03] MEDS: traZODone 50 MG TAB PO ×3 (08:49→21:01)
[2018-11-03] MEDS: ENOXAPARIN 40 MG/0.4 ML SYG SC (08:51)
[2018-11-03] MEDS: CHLORPROMAZINE 25 MG INJ IM (23:29)
[2018-11-04] MEDS: SENNA TAB PO (09:00)
[2018-11-04] MEDS: OLANZAPINE (ODT) 5 MG TAB ODT ×2 (09:01→21:37)
[2018-11-04] MEDS: traZODone 50 MG TAB PO ×3 (09:01→21:37)
[2018-11-04] MEDS: DIVALPROEX (EC) 250 MG TAB PO ×2 (09:01→21:38)
[2018-11-04] MEDS: THIAMINE 100 MG TAB PO (09:01)
[2018-11-04] MEDS: MEMANTINE 5 MG TAB PO ×2 (09:02→21:38)
[2018-11-04] MEDS: METOPROLOL (XL) 25 MG TAB PO (09:02)
[2018-11-04] MEDS: NIFEdipine (XL) 30 MG TAB PO ×2 (09:02→21:37)
[2018-11-04] MEDS: ENOXAPARIN 40 MG/0.4 ML SYG SC (09:03)
[2018-11-05] MEDS: ENOXAPARIN 40 MG/0.4 ML SYG SC (08:18)
[2018-11-05] MEDS: traZODone 50 MG TAB PO ×3 (08:19→22:05)
[2018-11-05] MEDS: THIAMINE 100 MG TAB PO (08:19)
[2018-11-05] MEDS: SENNA TAB PO (08:21)
[2018-11-05] MEDS: OLANZAPINE (ODT) 5 MG TAB ODT ×2 (08:21→22:05)
[2018-11-05] MEDS: METOPROLOL (XL) 25 MG TAB PO (08:21)
[2018-11-05] MEDS: NIFEdipine (XL) 30 MG TAB PO ×2 (08:22→22:06)
[2018-11-05] MEDS: MEMANTINE 5 MG TAB PO ×2 (08:22→22:05)
[2018-11-05] MEDS: DIVALPROEX (EC) 250 MG TAB PO ×2 (09:22→22:05)
[2018-11-06] MEDS: DIVALPROEX (EC) 250 MG TAB PO ×2 (09:03→20:55)
[2018-11-06] MEDS: THIAMINE 100 MG TAB PO (09:03)
[2018-11-06] MEDS: SENNA TAB PO (09:03)
[2018-11-06] MEDS: traZODone 50 MG TAB PO ×3 (09:04→20:54)
[2018-11-06] MEDS: METOPROLOL (XL) 25 MG TAB PO (09:04)
[2018-11-06] MEDS: MEMANTINE 5 MG TAB PO ×2 (09:04→20:55)
[2018-11-06] MEDS: OLANZAPINE (ODT) 5 MG TAB ODT ×2 (09:05→20:55)
[2018-11-06] MEDS: NIFEdipine (XL) 30 MG TAB PO ×2 (09:05→21:50)
[2018-11-06] MEDS: ENOXAPARIN 40 MG/0.4 ML SYG SC (09:08)
[2018-11-06] MEDS: BISACODYL (EC) 5 MG TAB PO (20:54)
[2018-11-07] MEDS: traZODone 50 MG TAB PO ×3 (08:41→21:17)
[2018-11-07] MEDS: DIVALPROEX (EC) 250 MG TAB PO ×2 (08:42→21:17)
[2018-11-07] MEDS: MEMANTINE 5 MG TAB PO ×2 (08:43→21:17)
[2018-11-07] MEDS: SENNA TAB PO (08:43)
[2018-11-07] MEDS: THIAMINE 100 MG TAB PO (08:43)
[2018-11-07] MEDS: NIFEdipine (XL) 30 MG TAB PO ×2 (08:43→21:18)
[2018-11-07] MEDS: BISACODYL (EC) 5 MG TAB PO (08:43)
[2018-11-07] MEDS: OLANZAPINE (ODT) 5 MG TAB ODT ×2 (08:44→21:19)
[2018-11-07] MEDS: ENOXAPARIN 40 MG/0.4 ML SYG SC (08:45)
[2018-11-07] MEDS: METOPROLOL (XL) 25 MG TAB PO (08:45)
[2018-11-08] MEDS: METOPROLOL (XL) 25 MG TAB PO (09:00)
[2018-11-08] MEDS: DIVALPROEX (EC) 250 MG TAB PO ×2 (09:01→20:09)
[2018-11-08] MEDS: traZODone 50 MG TAB PO ×3 (09:02→20:08)
[2018-11-08] MEDS: SENNA TAB PO (09:02)
[2018-11-08] MEDS: OLANZAPINE (ODT) 5 MG TAB ODT ×2 (09:02→20:08)
[2018-11-08] MEDS: THIAMINE 100 MG TAB PO (09:02)
[2018-11-08] MEDS: NIFEdipine (XL) 30 MG TAB PO ×2 (09:04→20:09)
[2018-11-08] MEDS: MEMANTINE 5 MG TAB PO ×2 (09:05→20:09)
[2018-11-08] MEDS: ENOXAPARIN 40 MG/0.4 ML SYG SC (09:13)
[2018-11-09] MEDS: traZODone 50 MG TAB PO ×2 (08:32→13:30)
[2018-11-09] MEDS: DIVALPROEX (EC) 250 MG TAB PO (08:33)
[2018-11-09] MEDS: OLANZAPINE (ODT) 5 MG TAB ODT (08:33)
[2018-11-09] MEDS: METOPROLOL (XL) 25 MG TAB PO (08:33)
[2018-11-09] MEDS: MEMANTINE 5 MG TAB PO (08:33)
[2018-11-09] MEDS: SENNA TAB PO (08:34)
[2018-11-09] MEDS: THIAMINE 100 MG TAB PO (08:34)
[2018-11-09] MEDS: NIFEdipine (XL) 30 MG TAB PO (08:34)
[2018-11-09] MEDS: ENOXAPARIN 40 MG/0.4 ML SYG SC (08:35)
[2018-11-10] MEDS: DIVALPROEX (EC) 250 MG TAB PO ×3 (00:31→20:11)
[2018-11-10] MEDS: traZODone 50 MG TAB PO ×4 (00:31→20:11)
[2018-11-10] MEDS: OLANZAPINE (ODT) 5 MG TAB ODT ×3 (00:31→20:13)
[2018-11-10] MEDS: MEMANTINE 5 MG TAB PO ×3 (00:31→20:11)
[2018-11-10] MEDS: NIFEdipine (XL) 30 MG TAB PO ×3 (00:39→20:12)
[2018-11-10] MEDS: SENNA TAB PO (08:33)
[2018-11-10] MEDS: THIAMINE 100 MG TAB PO (08:34)
[2018-11-10] MEDS: ENOXAPARIN 40 MG/0.4 ML SYG SC (08:35)
[2018-11-10] MEDS: METOPROLOL (XL) 25 MG TAB PO (09:00)
[2018-11-10] MEDS ORDERED: PETROLATUM 5 GM OINT TOP (09:30)
[2018-11-11] MEDS: DIVALPROEX (EC) 250 MG TAB PO ×2 (08:29→20:47)
[2018-11-11] MEDS: traZODone 50 MG TAB PO ×3 (08:30→20:47)
[2018-11-11] MEDS: NIFEdipine (XL) 30 MG TAB PO ×2 (08:30→20:47)
[2018-11-11] MEDS: SENNA TAB PO (08:30)
[2018-11-11] MEDS: MEMANTINE 5 MG TAB PO ×2 (08:30→20:48)
[2018-11-11] MEDS: OLANZAPINE (ODT) 5 MG TAB ODT ×2 (08:30→20:47)
[2018-11-11] MEDS: METOPROLOL (XL) 25 MG TAB PO (08:30)
[2018-11-11] MEDS: THIAMINE 100 MG TAB PO (08:31)
[2018-11-11] MEDS: ENOXAPARIN 40 MG/0.4 ML SYG SC (08:32)
[2018-11-12] MEDS: NIFEdipine (XL) 30 MG TAB PO ×4 (09:00→20:55)
[2018-11-12] MEDS: SENNA TAB PO ×3 (09:00→10:19)
[2018-11-12] MEDS: OLANZAPINE (ODT) 5 MG TAB ODT ×4 (09:00→20:52)
[2018-11-12] MEDS: MEMANTINE 5 MG TAB PO ×4 (09:00→20:52)
[2018-11-12] MEDS: THIAMINE 100 MG TAB PO ×3 (09:00→10:18)
[2018-11-12] MEDS: traZODone 50 MG TAB PO ×5 (09:00→20:51)
[2018-11-12] MEDS: DIVALPROEX (EC) 250 MG TAB PO ×4 (09:00→20:51)
[2018-11-12] MEDS: METOPROLOL (XL) 25 MG TAB PO ×2 (09:00→10:19)
[2018-11-12] MEDS: ENOXAPARIN 40 MG/0.4 ML SYG SC (09:06)
[2018-11-13] MEDS: DIVALPROEX (EC) 250 MG TAB PO ×2 (09:08→20:04)
[2018-11-13] MEDS: SENNA TAB PO (09:08)
[2018-11-13] MEDS: traZODone 50 MG TAB PO ×3 (09:08→20:05)
[2018-11-13] MEDS: OLANZAPINE (ODT) 5 MG TAB ODT ×2 (09:09→20:05)
[2018-11-13] MEDS: MEMANTINE 5 MG TAB PO ×2 (09:09→20:05)
[2018-11-13] MEDS: METOPROLOL (XL) 25 MG TAB PO (09:10)
[2018-11-13] MEDS: NIFEdipine (XL) 30 MG TAB PO ×2 (09:10→20:05)
[2018-11-13] MEDS: THIAMINE 100 MG TAB PO (09:10)
[2018-11-13] MEDS: ENOXAPARIN 40 MG/0.4 ML SYG SC (09:11)
[2018-11-14] MEDS: traZODone 50 MG TAB PO ×3 (10:13→20:42)
[2018-11-14] MEDS: OLANZAPINE (ODT) 5 MG TAB ODT ×2 (10:13→20:42)
[2018-11-14] MEDS: THIAMINE 100 MG TAB PO (10:13)
[2018-11-14] MEDS: METOPROLOL (XL) 25 MG TAB PO (10:14)
[2018-11-14] MEDS: NIFEdipine (XL) 30 MG TAB PO ×2 (10:14→20:41)
[2018-11-14] MEDS: SENNA TAB PO (10:14)
[2018-11-14] MEDS: MEMANTINE 5 MG TAB PO ×2 (10:15→20:41)
[2018-11-14] MEDS: DIVALPROEX (EC) 250 MG TAB PO ×2 (10:15→20:41)
[2018-11-14] MEDS: ENOXAPARIN 40 MG/0.4 ML SYG SC (10:19)
[2018-11-15] MEDS: traZODone 50 MG TAB PO ×3 (09:01→21:03)
[2018-11-15] MEDS: THIAMINE 100 MG TAB PO (09:01)
[2018-11-15] MEDS: DIVALPROEX (EC) 250 MG TAB PO ×2 (09:02→21:03)
[2018-11-15] MEDS: OLANZAPINE (ODT) 5 MG TAB ODT ×2 (09:02→21:03)
[2018-11-15] MEDS: METOPROLOL (XL) 25 MG TAB PO (09:03)
[2018-11-15] MEDS: MEMANTINE 5 MG TAB PO ×2 (09:04→21:03)
[2018-11-15] MEDS: NIFEdipine (XL) 30 MG TAB PO ×2 (09:04→21:03)
[2018-11-15] MEDS: SENNA TAB PO (09:04)
[2018-11-15] MEDS: ENOXAPARIN 40 MG/0.4 ML SYG SC (09:14)
[2018-11-16] MEDS: ENOXAPARIN 40 MG/0.4 ML SYG SC ×2 (09:00→10:50)
[2018-11-16] MEDS: NIFEdipine (XL) 30 MG TAB PO ×3 (09:00→22:14)
[2018-11-16] MEDS: METOPROLOL (XL) 25 MG TAB PO (09:00)
[2018-11-16] MEDS: traZODone 50 MG TAB PO ×3 (09:00→22:14)
[2018-11-16] MEDS: OLANZAPINE (ODT) 5 MG TAB ODT ×3 (09:00→22:13)
[2018-11-16] MEDS: THIAMINE 100 MG TAB PO ×2 (09:00→10:43)
[2018-11-16] MEDS: MEMANTINE 5 MG TAB PO ×3 (09:00→22:14)
[2018-11-16] MEDS: DIVALPROEX (EC) 250 MG TAB PO ×3 (09:00→22:14)
[2018-11-16] MEDS: SENNA TAB PO ×2 (09:00→10:46)
[2018-11-17] MEDS: METOPROLOL (XL) 25 MG TAB PO (09:37)
[2018-11-17] MEDS: traZODone 50 MG TAB PO ×3 (09:37→20:59)
[2018-11-17] MEDS: OLANZAPINE (ODT) 5 MG TAB ODT ×2 (09:38→21:00)
[2018-11-17] MEDS: MEMANTINE 5 MG TAB PO (09:39)
[2018-11-17] MEDS: DIVALPROEX (EC) 250 MG TAB PO (09:39)
[2018-11-17] MEDS: NIFEdipine (XL) 30 MG TAB PO (09:40)
[2018-11-17] MEDS: THIAMINE 100 MG TAB PO (09:40)
[2018-11-17] MEDS: SENNA TAB PO (09:40)
[2018-11-17] MEDS: ENOXAPARIN 40 MG/0.4 ML SYG SC (09:42)
[2018-11-18] MEDS: DIVALPROEX (EC) 250 MG TAB PO ×2 (09:02→21:47)
[2018-11-18] MEDS: METOPROLOL (XL) 25 MG TAB PO (09:02)
[2018-11-18] MEDS: NIFEdipine (XL) 30 MG TAB PO ×2 (09:03→21:48)
[2018-11-18] MEDS: DOCUSATE SODIUM 100 MG CAP PO (09:03)
[2018-11-18] MEDS: traZODone 50 MG TAB PO ×3 (09:04→21:48)
[2018-11-18] MEDS: MEMANTINE 5 MG TAB PO ×2 (09:04→21:48)
[2018-11-18] MEDS: OLANZAPINE (ODT) 5 MG TAB ODT (21:47)
[2018-11-19] MEDS: SENNA TAB PO (08:53)
[2018-11-19] MEDS: DIVALPROEX (EC) 250 MG TAB PO ×2 (08:54→21:33)
[2018-11-19] MEDS: METOPROLOL (XL) 25 MG TAB PO (08:55)
[2018-11-19] MEDS: traZODone 50 MG TAB PO ×3 (08:56→21:33)
[2018-11-19] MEDS: OLANZAPINE (ODT) 5 MG TAB ODT ×2 (08:56→21:33)
[2018-11-19] MEDS: THIAMINE 100 MG TAB PO (08:56)
[2018-11-19] MEDS: NIFEdipine (XL) 30 MG TAB PO ×2 (08:57→21:34)
[2018-11-19] MEDS: MEMANTINE 5 MG TAB PO ×2 (08:57→21:34)
[2018-11-19] MEDS: ENOXAPARIN 40 MG/0.4 ML SYG SC (09:00)
[2018-11-20] MEDS: THIAMINE 100 MG TAB PO (08:55)
[2018-11-20] MEDS: ENOXAPARIN 40 MG/0.4 ML SYG SC (08:55)
[2018-11-20] MEDS: SENNA TAB PO (08:55)
[2018-11-20] MEDS: MEMANTINE 5 MG TAB PO ×2 (08:56→21:27)
[2018-11-20] MEDS: traZODone 50 MG TAB PO ×3 (08:56→21:26)
[2018-11-20] MEDS: OLANZAPINE (ODT) 5 MG TAB ODT ×2 (08:56→21:26)
[2018-11-20] MEDS: DIVALPROEX (EC) 250 MG TAB PO ×2 (08:56→21:27)
[2018-11-20] MEDS: METOPROLOL (XL) 25 MG TAB PO (08:58)
[2018-11-20] MEDS: NIFEdipine (XL) 30 MG TAB PO ×2 (08:59→21:27)
[2018-11-21] MEDS: SENNA TAB PO (09:45)
[2018-11-21] MEDS: DIVALPROEX (EC) 250 MG TAB PO ×2 (09:48→21:16)
[2018-11-21] MEDS: OLANZAPINE (ODT) 5 MG TAB ODT ×2 (09:48→21:17)
[2018-11-21] MEDS: METOPROLOL (XL) 25 MG TAB PO (09:48)
[2018-11-21] MEDS: MEMANTINE 5 MG TAB PO ×2 (09:49→21:17)
[2018-11-21] MEDS: traZODone 50 MG TAB PO ×3 (09:49→21:17)
[2018-11-21] MEDS: NIFEdipine (XL) 30 MG TAB PO ×2 (09:49→21:17)
[2018-11-21] MEDS: THIAMINE 100 MG TAB PO (09:49)
[2018-11-21] MEDS: ENOXAPARIN 40 MG/0.4 ML SYG SC (09:50)
[2018-11-22] MEDS: ENOXAPARIN 40 MG/0.4 ML SYG SC (08:34)
[2018-11-22] MEDS: SENNA TAB PO (08:35)
[2018-11-22] MEDS: METOPROLOL (XL) 25 MG TAB PO (08:35)
[2018-11-22] MEDS: THIAMINE 100 MG TAB PO (08:36)
[2018-11-22] MEDS: traZODone 50 MG TAB PO ×3 (08:36→20:33)
[2018-11-22] MEDS: OLANZAPINE (ODT) 5 MG TAB ODT ×2 (08:36→20:33)
[2018-11-22] MEDS: DIVALPROEX (EC) 250 MG TAB PO ×2 (08:36→20:33)
[2018-11-22] MEDS: MEMANTINE 5 MG TAB PO ×2 (08:36→20:33)
[2018-11-22] MEDS: NIFEdipine (XL) 30 MG TAB PO ×2 (08:37→20:33)
[2018-11-23] MEDS: ENOXAPARIN 40 MG/0.4 ML SYG SC (09:18)
[2018-11-23] MEDS: traZODone 50 MG TAB PO ×3 (09:19→20:56)
[2018-11-23] MEDS: DIVALPROEX (EC) 250 MG TAB PO ×2 (09:19→20:55)
[2018-11-23] MEDS: SENNA TAB PO (09:20)
[2018-11-23] MEDS: METOPROLOL (XL) 25 MG TAB PO (09:20)
[2018-11-23] MEDS: THIAMINE 100 MG TAB PO (09:20)
[2018-11-23] MEDS: MEMANTINE 5 MG TAB PO ×2 (09:20→20:56)
[2018-11-23] MEDS: NIFEdipine (XL) 30 MG TAB PO ×2 (09:20→20:56)
[2018-11-23] MEDS: OLANZAPINE (ODT) 5 MG TAB ODT ×2 (09:21→20:56)
[2018-11-24] MEDS: METOPROLOL (XL) 25 MG TAB PO (08:04)
[2018-11-24] MEDS: NIFEdipine (XL) 30 MG TAB PO ×2 (08:04→20:35)
[2018-11-24] MEDS: traZODone 50 MG TAB PO ×3 (08:04→20:31)
[2018-11-24] MEDS: DIVALPROEX (EC) 250 MG TAB PO ×2 (08:04→20:31)
[2018-11-24] MEDS: OLANZAPINE (ODT) 5 MG TAB ODT ×2 (08:05→20:34)
[2018-11-24] MEDS: SENNA TAB PO (08:05)
[2018-11-24] MEDS: THIAMINE 100 MG TAB PO (08:05)
[2018-11-24] MEDS: MEMANTINE 5 MG TAB PO ×2 (08:05→20:31)
[2018-11-24] MEDS: ENOXAPARIN 40 MG/0.4 ML SYG SC (08:06)
[2018-11-25] MEDS: DIVALPROEX (EC) 250 MG TAB PO ×2 (08:13→20:02)
[2018-11-25] MEDS: SENNA TAB PO (08:13)
[2018-11-25] MEDS: MEMANTINE 5 MG TAB PO ×2 (08:13→20:03)
[2018-11-25] MEDS: THIAMINE 100 MG TAB PO (08:14)
[2018-11-25] MEDS: NIFEdipine (XL) 30 MG TAB PO ×2 (08:14→20:03)
[2018-11-25] MEDS: OLANZAPINE (ODT) 5 MG TAB ODT ×2 (08:14→20:02)
[2018-11-25] MEDS: traZODone 50 MG TAB PO ×3 (08:14→20:03)
[2018-11-25] MEDS: METOPROLOL (XL) 25 MG TAB PO (08:15)
[2018-11-25] MEDS: ENOXAPARIN 40 MG/0.4 ML SYG SC (08:16)
[2018-11-26] MEDS: SENNA TAB PO (08:52)
[2018-11-26] MEDS: METOPROLOL (XL) 25 MG TAB PO (08:53)
[2018-11-26] MEDS: OLANZAPINE (ODT) 5 MG TAB ODT ×2 (08:53→20:16)
[2018-11-26] MEDS: DIVALPROEX (EC) 250 MG TAB PO ×2 (08:53→20:17)
[2018-11-26] MEDS: MEMANTINE 5 MG TAB PO ×2 (08:54→20:17)
[2018-11-26] MEDS: traZODone 50 MG TAB PO ×3 (08:54→20:17)
[2018-11-26] MEDS: THIAMINE 100 MG TAB PO (08:54)
[2018-11-26] MEDS: NIFEdipine (XL) 30 MG TAB PO ×2 (08:54→20:17)
[2018-11-26] MEDS: ENOXAPARIN 40 MG/0.4 ML SYG SC (08:55)
[2018-11-26] MEDS: (Nursing Note) XX (22:00)
[2018-11-27 07:24] LABS: ADD MAN DIFF? NO
[2018-11-27 07:26] LABS: WHITE BLOOD COUNT 6.5 10^3/ul (4.8-10.8)
[2018-11-27 07:26] LABS: BASOPHIL # 0.1 10^3/ul (0.0-0.1); BASOPHILS % 0.9 % (0.0-2.0); EOSINOPHILS # 0.3 10^3/ul (0.0-0.5); EOSINOPHILS % 5.1 % (0.0-7.0); HEMATOCRIT 33.2 % (42.0-52.0); HEMOGLOBIN 10.9 g/dl (14.0-18.0); LYMPHOCYTES # 2.5 10^3/ul (0.8-2.9); LYMPHOCYTES % 37.8 % (15.0-51.0); MEAN CORPUSCULAR HEMOGLOBIN 32.1 pg (29.0-33.0); MEAN CORPUSCULAR HGB CONC 32.8 g/dl (32.0-37.0); MEAN CORPUSCULAR VOLUME 97.6 fl (82.0-101.0); MEAN PLATELET VOLUME 11.1 fl (7.4-10.4); MONOCYTE # 0.6 10^3/ul (0.3-0.9); MONOCYTES % 8.4 % (0.0-11.0); NEUTROPHIL # 3.1 10^3/ul (1.6-7.5); NEUTROPHILS % 47.5 % (39.0-77.0); PLATELET COUNT 145 10^3/UL (140-415); RED CELL DISTRIBUTION WIDTH 13.8 % (11.5-14.5)
[2018-11-27 07:44] LABS: ANION GAP 9 (5-13); BLOOD UREA NITROGEN 26 mg/dl (7-20); CALCIUM 8.5 mg/dl (8.4-10.2); CARBON DIOXIDE 26 mmol/L (21-31); CHLORIDE 109 mmol/L (97-110); CREATININE 1.16 mg/dl (0.61-1.24); GLUCOSE 95 mg/dl (70-220); PHOSPHORUS 4.1 mg/dl (2.5-4.9); SODIUM 144 mmol/L (135-144)
[2018-11-27] MEDS: OLANZAPINE (ODT) 5 MG TAB ODT ×2 (08:53→20:55)
[2018-11-27] MEDS: DIVALPROEX (EC) 250 MG TAB PO ×2 (08:54→20:56)
[2018-11-27] MEDS: traZODone 50 MG TAB PO ×3 (08:54→20:55)
[2018-11-27] MEDS: SENNA TAB PO (08:55)
[2018-11-27] MEDS: MEMANTINE 5 MG TAB PO ×2 (08:57→20:55)
[2018-11-27] MEDS: THIAMINE 100 MG TAB PO (08:57)
[2018-11-27] MEDS: NIFEdipine (XL) 30 MG TAB PO ×2 (08:57→20:55)
[2018-11-27] MEDS: (Nursing Note) XX ×2 (09:00→20:57)
[2018-11-27] MEDS: METOPROLOL (XL) 25 MG TAB PO (09:00)
[2018-11-27] MEDS: ENOXAPARIN 40 MG/0.4 ML SYG SC (09:02)
[2018-11-27 10:18] LABS: HEMATOCRIT 37.5 % (42.0-52.0); HEMOGLOBIN 12.3 g/dl (14.0-18.0)
[2018-11-28] MEDS: (Nursing Note) XX ×2 (09:00→21:00)
[2018-11-28] MEDS: MEMANTINE 5 MG TAB PO ×2 (09:09→20:19)
[2018-11-28] MEDS: NIFEdipine (XL) 30 MG TAB PO ×2 (09:10→20:19)
[2018-11-28] MEDS: SENNA TAB PO (09:11)
[2018-11-28] MEDS: DIVALPROEX (EC) 250 MG TAB PO ×2 (09:11→20:18)
[2018-11-28] MEDS: METOPROLOL (XL) 25 MG TAB PO (09:12)
[2018-11-28] MEDS: THIAMINE 100 MG TAB PO (09:13)
[2018-11-28] MEDS: traZODone 50 MG TAB PO ×3 (09:13→20:19)
[2018-11-28] MEDS: OLANZAPINE (ODT) 5 MG TAB ODT ×2 (09:14→20:20)
[2018-11-28] MEDS: ENOXAPARIN 40 MG/0.4 ML SYG SC (09:16)
[2018-11-28] MEDS: LISINOPRIL 5 MG TAB PO (10:54)
[2018-11-28] MEDS: CHLORPROMAZINE 25 MG INJ IM (23:51)
[2018-11-29 05:48] LABS: ADD MAN DIFF? NO
[2018-11-29 05:51] LABS: WHITE BLOOD COUNT 6.7 10^3/ul (4.8-10.8)
[2018-11-29 05:51] LABS: BASOPHIL # 0.1 10^3/ul (0.0-0.1); BASOPHILS % 1.2 % (0.0-2.0); EOSINOPHILS # 0.3 10^3/ul (0.0-0.5); EOSINOPHILS % 4.2 % (0.0-7.0); HEMATOCRIT 32.5 % (42.0-52.0); LYMPHOCYTES # 2.9 10^3/ul (0.8-2.9); LYMPHOCYTES % 43.5 % (15.0-51.0); MEAN CORPUSCULAR HEMOGLOBIN 32.4 pg (29.0-33.0); MEAN CORPUSCULAR HGB CONC 33.8 g/dl (32.0-37.0); MEAN CORPUSCULAR VOLUME 95.9 fl (82.0-101.0); MEAN PLATELET VOLUME 10.7 fl (7.4-10.4); MONOCYTE # 0.6 10^3/ul (0.3-0.9); MONOCYTES % 9.2 % (0.0-11.0); NEUTROPHIL # 2.8 10^3/ul (1.6-7.5); NEUTROPHILS % 41.6 % (39.0-77.0); PLATELET COUNT 146 10^3/UL (140-415); RED BLOOD COUNT 3.39 10^6/ul (4.70-6.10); RED CELL DISTRIBUTION WIDTH 13.8 % (11.5-14.5)
[2018-11-29 06:30] LABS: ANION GAP 6 (5-13); BLOOD UREA NITROGEN 29 mg/dl (7-20); CALCIUM 8.8 mg/dl (8.4-10.2); CARBON DIOXIDE 28 mmol/L (21-31); CHLORIDE 109 mmol/L (97-110); CREATININE 1.24 mg/dl (0.61-1.24); GLUCOSE 89 mg/dl (70-220); MAGNESIUM 2.1 mg/dl (1.7-2.5); PHOSPHORUS 4.2 mg/dl (2.5-4.9); POTASSIUM 3.8 mmol/L (3.5-5.1); SODIUM 143 mmol/L (135-144)
[2018-11-29] MEDS: (Nursing Note) XX ×2 (09:00→21:00)
[2018-11-29] MEDS: OLANZAPINE (ODT) 5 MG TAB ODT ×2 (09:32→20:33)
[2018-11-29] MEDS: DIVALPROEX (EC) 250 MG TAB PO (09:32)
[2018-11-29] MEDS: SENNA TAB PO (09:32)
[2018-11-29] MEDS: MEMANTINE 5 MG TAB PO ×2 (09:32→20:33)
[2018-11-29] MEDS: traZODone 50 MG TAB PO ×3 (09:33→20:33)
[2018-11-29] MEDS: LISINOPRIL 5 MG TAB PO (09:33)
[2018-11-29] MEDS: NIFEdipine (XL) 30 MG TAB PO ×2 (09:33→20:34)
[2018-11-29] MEDS: THIAMINE 100 MG TAB PO (09:33)
[2018-11-29] MEDS: METOPROLOL (XL) 25 MG TAB PO (09:33)
[2018-11-29] MEDS: ENOXAPARIN 40 MG/0.4 ML SYG SC (09:37)
[2018-11-29] MEDS: DIVALPROEX (EC) 500 MG TAB PO (20:33)
[2018-11-30] MEDS: SENNA TAB PO (08:09)
[2018-11-30] MEDS: DIVALPROEX (EC) 500 MG TAB PO (08:09)
[2018-11-30] MEDS: MEMANTINE 5 MG TAB PO (08:09)
[2018-11-30] MEDS: OLANZAPINE (ODT) 5 MG TAB ODT (08:09)
[2018-11-30] MEDS: traZODone 50 MG TAB PO (08:09)
[2018-11-30] MEDS: THIAMINE 100 MG TAB PO (08:10)
[2018-11-30] MEDS: NIFEdipine (XL) 30 MG TAB PO (08:10)
[2018-11-30] MEDS: LISINOPRIL 10 MG TAB PO (08:10)
[2018-11-30] MEDS: METOPROLOL (XL) 25 MG TAB PO (08:10)
[2018-11-30] MEDS: (Nursing Note) XX (08:11)
== END 2018-11-30 10:00 | DRG 884 ==
LOC: E/R 23:45 → PP2 10-08 15:25 → 5EC 10-10 10:40 → PP2 10-07 16:59
DX: F03.91 Unspecified dementia, unspecified severity, with behavioral disturbance (principal); E51.2 Wernicke's encephalopathy; F10.259 Alcohol dependence with alcohol-induced psychotic disorder, unspecified; Z91.83 Wandering in diseases classified elsewhere; R62.7 Adult failure to thrive; F32.9 Major depressive disorder, single episode, unspecified; Z68.24 Body mass index [BMI] 24.0-24.9, adult; Z86.73 Personal history of transient ischemic attack (TIA), and cerebral infarction without residual deficits; Z72.0 Tobacco use; I25.10 Atherosclerotic heart disease of native coronary artery without angina pectoris; I10 Essential (primary) hypertension; E78.5 Hyperlipidemia, unspecified; F04 Amnestic disorder due to known physiological condition; D63.8 Anemia in other chronic diseases classified elsewhere
CPT/HCPCS: 36415; 70450; 80048; 80053; 80164; 81001; 81003; 82607; 82746; 83036; 83690; 83735; 84100; 84443; 84484; 85014; 85018; 85025; 86592; 87081; 90686; 93005; 99285-25; G0378